=== PATIENT | female | born 1990 | race Caucasian/White ===

== ENCOUNTER 2017-07-26 13:46 | Emergency (ER) | payer BC ==
[~2017-07-26] VITALS: Ht 162.6 cm; Wt 78.3 kg
[~2017-07-26 13:46] MED LIST: MOTRIN400 MG PO; MOTRIN800 MG PO; NOHOMEMEDS; PROZAC20 MG PO; TEGRETOL200 MG PO
[2017-07-26 16:16] LABS: BASOPHIL COUNT 0.1 K/uL (0-0.1); EOSINOPHIL (%) 1.5 % (0-5); EOSINOPHIL COUNT 0.1 K/uL (0-0.3); HEMATOCRIT 41.6 % (36.0-46.0); IMMATURE GRANULOCYTE (%) 0.3 % (0.0-0.7); INSTRUMENT ABS NEUTROPHIL CT 4.7 K/uL; LYMPHOCYTE COUNT 1.9 K/uL (1.0-2.8); MCH 32.1 PG (29.0-34.0); MCHC 34.9 G/DL (30.0-36.0); MEAN PLAT.VOLUME 9.9 uM^3 (9.5-12.4); MONOCYTE (%) 7.7 % (3-12); MONOCYTE COUNT 0.6 K/uL (0-0.8); NEUTROPHIL (%) 63.9 % (45-76); NEUTROPHIL COUNT 4.7 K/uL (1.8-6.4); PLATELET COUNT 257 K/uL (156-360); RBC DIS.WIDTH-CV 12.4 % (11.8-14.6); RBC DIS.WIDTH-SD 41.9 % (39-53); RED BLOOD COUNT 4.52 M/uL (3.80-5.20); WHITE BLOOD COUNT 7.4 K/uL (4.1-10.2)
[2017-07-26 16:24] LABS: CHLORIDE 112 mEq/L (99-109); POTASSIUM 3.7 mEq/L (3.7-5.4); SODIUM 143 mEq/L (136-147)
[2017-07-26 16:26] LABS: GLUCOSE 83 mg/dL (70-99)
[2017-07-26 16:27] LABS: ANION GAP 13 MEQ/L (2-14)
[2017-07-26 16:29] LABS: GFR ESTIMATE (CALCULATED) > 59 mL/min/
[2017-07-26 16:30] LABS: UREA NITROGEN (BUN) 17 mg/dL (9-23)
[2017-07-26 16:38] LABS: QUANTITATIVE HCG < 4.0 MIU/ML
[2017-07-26 17:25] LABS: ADD MIUA? YES; BILIRUBIN NEGATIVE; BLOOD NEGATIVE; COLOR YELLOW ((YELLOW)); GLUCOSE (STRIP) NEGATIVE; KETONES NEGATIVE; LEUKOCYTES TRACE; NITRITE NEGATIVE; PROTEIN (STRIP) NEGATIVE; SPECIFIC GRAVITY 1.023 (1.000-1.030); UROBILINOGEN 0.2 MG/DL (0.2-1.0)
[2017-07-26] MEDS ORDERED: TOPIRAMATE100 MG PO (17:27)
[2017-07-26 17:52] LABS: BACTERIA RARE /HPF; EPITHELIAL CELLS 1+ /HPF; MUCUS 4+ /LPF; RED BLOOD CELLS 0-5 /HPF (0-5); UNCLASSIFIED CASTS 0-5 /LPF
[2017-07-26] MEDS ORDERED: FLONASE16 G1 BOTH NARES (18:38)
[2017-07-26] MEDS ORDERED: NAPROSYN500 MG PO (18:38)
[2017-07-26] MEDS ORDERED: MUCINEX D ER T1 EACH PO (18:38)
[2017-07-26] MEDS ORDERED: CEFDINIR300 MG PO (18:38)
[2017-07-26 19:15] VITALS: BP 131/92
[2017-07-27 09:54] LABS: LYME DISEASE SEROLOGY SCREEN NEGATIVE (NEGATIVE)
== END 2017-07-26 19:16 | disposition home or self-care (01) ==
LOC: EME 13:46
PROVIDERS: Physician Assistant
DX: J32.9 Chronic sinusitis, unspecified (principal); R03.0 Elevated blood-pressure reading, without diagnosis of hypertension; E86.0 Dehydration; H53.2 Diplopia; H57.8 Other specified disorders of eye and adnexa; R20.0 Anesthesia of skin
CPT/HCPCS: 70450; 80048; 81003; 84702; 85025; 86618; 99281; 99284